=== PATIENT | male | born 1960 | race Caucasian/White ===

== ENCOUNTER 2017-01-16 16:08 | Emergency (ER) | payer OTHER ==
[~2017-01-16] VITALS: Ht 165.1 cm; Wt 90.0 kg
[~2017-01-16 16:08] MED LIST: AMOX500C PO; HTN; PARO10TA; PERC10TA27 PO; PRED20 PO; PRIL10CA
[2017-01-16 16:16] VITALS: BP 158/70; PULSE 104; RESP 16; TEMP 98.5; O2SAT 97
[2017-01-16] MEDS ORDERED: LEXA10TA PO (16:28)
[2017-01-16] MEDS ORDERED: PRIL10PO P-ARTICULR (16:28)
[2017-01-16] MEDS ORDERED: BLOOD PRESSURE MED PO (16:28)
[2017-01-16] MEDS ORDERED: INFL100P IM (16:28)
--- NOTE | 2017-01-16 16:38 | PD ---
HPI Chief Complaint: Allergic/Adverse Reaction Time Seen by Provider: 16:25 Travel History International Travel<30 days: No Contact w/Intl Traveler<30days: No Traveled to known affect area: No History of Present Illness HPI 56 y/o male states yesterday at work he was exposed to a chemical and started to develop swelling to his hands and went to a work force center where they gave him a steroid shot and had him continue Benadryl and a prednisone prescription. He states this was yesterday morning. He states since then he has developed a rash around his neck and swelling to his ears. He denies any difficulty breathing, difficulty swallowing, sore throat or any other area of concern. PFSH Past Medical History Depression: Yes GERD: Yes Hypertension: Yes Past Surgical History Surgical History: No Previous Surgery Social History Alcohol Use: Yes (OCC) Tobacco Use: Yes (CIGARS) Substance Use: No Allergies-Medications (Allergen,Severity, Reaction): Coded Allergies: No Known Allergies (Verified , 01/16/17) Reported Meds & Prescriptions Reported Meds & Active Scripts Active Pepcid (Famotidine) 20 Mg Tab 20 Mg PO DAILY 7 Days Reported [Blood Pressure Med] 1 Tab PO DAILY Remicade Inj (Infliximab) 100 Mg Inj 100 Mg IM MONTHLY Prilosec (Omeprazole Magnesium) 10 Mg Pow 1 Tab P-ARTICULR DAILY Lexapro (Escitalopram Oxalate) 10 Mg Tab 10 Mg PO DAILY Review of Systems Except as stated in HPI: all other systems reviewed are Neg Physical Exam Narrative GENERAL: Well-nourished, well-developed patient. SKIN: Isolated Hive like rash noted around upper anterior chest wall around collar of shirt HEAD: Normocephalic and atraumatic. EYES: No injection or drainage. ENT: No nasal drainage noted. Mild swelling noted to pinna bilaterally, no uvula edema NECK: Supple, trachea midline. CARDIOVASCULAR: Regular rate and rhythm RESPIRATORY: Breath sounds equal bilaterally. No accessory muscle use. GASTROINTESTINAL: Abdomen soft, non-tender, nondistended. EXTREMITIES: No edema. NEUROLOGICAL: Awake and alert. Motor and sensory grossly within normal limits. Normal speech. Data Data Last Documented VS Vital Signs Date Time Temp Pulse Resp B/P (MAP) Pulse Ox O2 Delivery O2 Flow Rate FiO2 01/16/17 16:47 99 Room Air 01/16/17 16:16 98.5 104 16 158/70 (99) Orders Orders Ecg Monitoring (01/16/17 16:32) Oximetry (01/16/17 16:32) Famotidine (Pepcid) (01/16/17 16:45) [facility] Medical Decision Making Medical Screen Exam Complete: Yes Emergency Medical Condition: Yes Medical Record Reviewed: Yes (past history confirmed) Differential Diagnosis Allergic reaction, chemical exposure, cellulitis Narrative Course Patient is already on Benadryl and prednisone with current rash and swelling to the ears. Swelling to the hands has improved. Will dose with additional antihistamine of Pepcid and monitor to make sure that doesn't worsen on reassessment one hour after pepcid Patient denies any new complaints and states that they are feeling better. Patient happy with care, all questions answered. Patient knows that follow up is incumbent on them and to return to the emergency room immediately if new or worsening symptoms develop. Patient given strict return precautions, vitals reviewed and are normal, agrees to further workup as an outpatient. Diagnosis Primary Impression: Allergic reaction Qualified Codes: T78.40XA - Allergy, unspecified, initial encounter Patient Instructions: General Instructions Additional Instructions: return as needed, follow with primary tommorrow, continue benadryl as needed for itching Med/Other Pt SpecificInfo: Prescription(s) given Scripts Famotidine (Pepcid) 20 Mg Tab 20 MG PO DAILY for 7 Days, #7 TAB 0 Refills Prov: Shi Berman MD 01/16/17 Disposition: 01 DISCHARGE HOME Condition: Stable Shi Berman MD Jan 16, 2017 16:38
[2017-01-16] MEDS ORDERED: FAMOTIDINE 20 MG TAB PO ONE (16:45)
[2017-01-16 16:47] VITALS: O2SAT 99
[2017-01-16] MEDS ORDERED: FAMO1TAB37 PO (16:56)
[2017-01-16 17:05] VITALS: BP 132/78; PULSE 89; RESP 18; O2SAT 100
== END 2017-01-16 17:54 | disposition home or self-care (01) ==
LOC: PHED 16:08
DX: T78.40XA Allergy, unspecified, initial encounter (principal); X58.XXXA Exposure to other specified factors, initial encounter; I10 Essential (primary) hypertension; F32.9 Major depressive disorder, single episode, unspecified; K21.9 Gastro-esophageal reflux disease without esophagitis; F17.200 Nicotine dependence, unspecified, uncomplicated
CPT/HCPCS: 99283